=== PATIENT | female | born 1970 ===

== ENCOUNTER 2017-06-04 04:00 | Inpatient (IN) | payer MEDICAID ==
[2017-06-04 04:11] VITALS: BMI 21.4
[2017-06-04 04:51] LABS: BASO # 0.1 K/uL (0.0-0.2); BASO % 1.4 % (0.0-2.0); EOS # 0.1 K/uL (0.0-0.7); EOS % 1.2 % (0.0-4.0); HEMATOCRIT 37.1 % (34.0-47.0); LYMPH # 2.3 K/uL (1.0-4.3); LYMPH % 26.6 % (20.0-40.0); MEAN CORPUSCULAR HEMOGLOBIN 31.3 pg (27.0-31.0); MEAN PLATELET VOLUME 8.1 fl (7.2-11.7); MONO # 0.6 K/uL (0.0-0.8); MONO % 7.6 % (0.0-10.0); NEUT # 5.4 K/uL (1.8-7.0); NEUT % 63.2 % (50.0-75.0); NRBC % 0.1 % (0.0-0.0); RED CELL DISTRIBUTION WIDTH 13.5 % (11.5-14.5); WHITE BLOOD COUNT 8.6 K/uL (4.8-10.8)
[2017-06-04 05:00] LABS: ALB/GLOB RATIO 1.3 (1.0-2.1); ALCOHOL SERUM < 10 mg/dl (0-10); ALKALINE PHOSPHATASE 50 U/L (38-126); ALT/SGPT 26 U/L (9-52); AST/SGOT 20 U/L (14-36); BILIRUBIN,TOTAL 0.4 mg/dl (0.2-1.3); BLOOD UREA NITROGEN 27 mg/dl (7-17); CALCIUM 8.7 mg/dL (8.4-10.2); CARBON DIOXIDE 24 mmol/L (22-30); CHLORIDE 107 mmol/L (98-107); GFR AFRICAN-AMERICAN > 60; GLUCOSE,RANDOM 98 mg/dL (65-105); MAGNESIUM 1.8 MG/DL (1.6-2.3); POTASSIUM 3.4 MMOL/L (3.6-5.0); SODIUM 141 mmol/l (132-148); TOTAL PROTEIN 6.9 G/DL (6.3-8.2)
[2017-06-04 05:04] LABS: PARTIAL THROMBOPLASTIN TIME 30.7 Seconds (25.6-37.1)
[2017-06-04] MEDS ORDERED: DEXTROSE 5% IVPB STA ×2 (05:22→05:32)
[2017-06-04] MEDS ORDERED: WATER IVPB STA ×2 (05:22→05:32)
[2017-06-04] MEDS ORDERED: ACETYLCYSTEINE IVPB STA ×2 (05:22→05:32)
--- NOTE | 2017-06-04 05:33 | ED PDOC ---
HPI: Psych/Substance Abuse Time Seen by Provider: 06/04/17 04:10 Chief Complaint (Nursing): Psychiatric Evaluation Chief Complaint (Provider): Overdose ED Caveat: Uncooperative History Per: Patient History/Exam Limitations: no limitations Onset/Duration Of Symptoms: Mins (just prior to arrival) Current Symptoms Are (Timing): Still Present Additional Complaint(s): 47 y/o female with a past medical history of depression, brought to the ED by EMS, presents to the ED complaining of an overdose, with an onset just prior to arrival. According to EMS, they received a phone call from the patient's concerned nephew, who witnessed the patient take 10 tablets of Aleve and 8 tablets of Ibuprofen with suicidal intent because the patient was experiencing some sort of strain with her boyfriend and seemed depressed. On arrival to ED she is not cooperative, but denies nausea, vomiting, diarrhea,fever, cough, and chest pain. Of note, patient denies of any surgical, social, or family history, but admits to being suicidal. Past Medical History Reviewed: Historical Data, Nursing Documentation, Vital Signs Vital Signs: Last Vital Signs Temp 98.0 F 06/04/17 04:09 Pulse 79 06/04/17 04:09 Resp 16 06/04/17 04:09 BP 158/84 H 06/04/17 04:09 Pulse Ox 100 06/04/17 04:09 - Medical History PMH: Asthma, Back Problems, Depression, Gall Bladder Disease (gallstone), Migraine - Surgical History Surgical History: No Surg Hx - Family History Family History: States: Unknown Family Hx - Living Arrangements Living Arrangements: With Family - Social History Current smoker - smoking cessation education provided: No Ex-Smoker (has not smoked in the last 12 months): No Drugs: Denies - Immunization History Hx Tetanus Toxoid Vaccination: No Hx Influenza Vaccination: No Hx Pneumococcal Vaccination: No - Home Medications Home Medications: Ambulatory Orders Medication Instructions Recorded Famotidine [Pepcid] 20 mg PO BID #30 tab 01/04/17 Metoclopramide [Reglan] 1 tab PO TID PRN #15 tab 01/04/17 Albuterol HFA [Ventolin HFA 90 2 puff IH Q4H PRN #1 bottle 05/21/17 mcg/actuation (8 g)] Methylprednisolone [Medrol Dose 4 mg PO DAILY #21 mg 05/21/17 Pack (21 tabs)] - Allergies Allergies/Adverse Reactions: Allergies Allergy/AdvReac Type Severity Reaction Status Date / Time tramadol Allergy Verified 08/28/16 12:23 Review of Systems ROS Statement: Except As Marked, All Systems Reviewed And Found Negative Constitutional: Negative for: Fever Cardiovascular: Negative for: Chest Pain Respiratory: Negative for: Cough Gastrointestinal: Negative for: Nausea, Vomiting, Diarrhea Psych: Positive for: Depression, Suicidal ideation Physical Exam - Reviewed Nursing Documentation Reviewed: Yes Vital Signs Reviewed: Yes - Physical Exam Appears: Positive for: Non-toxic, No Acute Distress Head Exam: Positive for: ATRAUMATIC, NORMOCEPHALIC Skin: Positive for: Normal Color, Warm Eye Exam: Positive for: Normal appearance, EOMI, PERRL ENT: Positive for: Normal ENT Inspection Neck: Positive for: Normal, Painless ROM, Supple Cardiovascular/Chest: Positive for: Regular Rate, Rhythm. Negative for: Murmur Respiratory: Positive for: Normal Breath Sounds. Negative for: Respiratory Distress Gastrointestinal/Abdominal: Positive for: Normal Exam, Soft. Negative for: Tenderness Back: Positive for: Normal Inspection Extremity: Positive for: Normal ROM. Negative for: Pedal Edema, Deformity Neurologic/Psych: Positive for: Alert, Oriented, Mood/Affect (Affect is flat). Negative for: Motor/Sensory Deficits - Laboratory Results Result Diagrams: 06/04/17 04:41 06/04/17 15:00 - ECG O2 Sat by Pulse Oximetry: 100 (RA) Pulse Ox Interpretation: Normal - Critical Care Total Time (In Min): 60 Medical Decision Making Medical Decision Making: Time: --04:11 Initial Impression: -- 47 y/o female with suicidal ideation and action via overdose Initial Plan: --EKG --Drug Screen, Urine --Acetaminophen Routine --hepatic Function (Liver) --Poison Control Consult --Crisis Evaluation --ED Urine [place] --Urine --INR --Acetylcsteine IVPB --Haldol 5mg IM --Lorazepam 2mg iM --Heplock Insertion --1:1 Obs for Suicide Precaution --Call Poison Control --Accucheck --Restraint: Violent or Harm to self/other --Urinalysis Reassess --04:41 --labs reviewed significant for Acetaminophen level of 23, so provider spoke with patient again to ascertain if acetaminophen had been ingested; the patient now believes that she may have taken 8 tabs of acetaminophen instead of ibuprofen as bottle was not labeled clearly. --Poison tele consult was obtained. Provider spoke with poison control nurse Brian who left decision to the provider regarding acetadote administration. He also recommended repeat 4 hour Tylenol, liver function and INR which has been ordered. Additionally, the loading dose and 4 hour infusion dose of Acetadote has been ordered. --07:00 Patient to be signed out to Dr. Steward pending repeat labs and reevaluation. Scribe Attestation: Documented by Fuentes Hannah acting as a scribe for Rohan Hernandes MD. Provider Attestation: All medical record entries made by the Scribe were at my direction and personally dictated by me. I have reviewed the chart and agree that the record accurately reflects my personal performance of the history, physical exam, medical decision making, and the department course for this patient. I have also personally directed, reviewed, and agree with the discharge instructions and disposition. Disposition - Clinical Impression Clinical Impression: Tylenol overdose, Suicide attempt - Patient ED Disposition Is Patient to be Admitted: Transfer of Care - Disposition Disposition: Transfer of Care Disposition Time: 07:00 (Patient to be signed out to Dr. Steward pending repeat labs and reevaluation.) Condition: GUARDED
--- NOTE | 2017-06-04 07:07 | ED PDOC ---
- Laboratory Results Result Diagrams: 06/04/17 04:41 06/04/17 04:41 - ECG O2 Sat by Pulse Oximetry: 100 (RA) Pulse Ox Interpretation: Normal Medical Decision Making Medical Decision Makin:00 Patient signed over from Rohan Hernandes MD to me pending repeat labs and reevaluation. Scribe Attestation: Documented by Hannah Rahman, acting as a scribe for Frank Steward MD. Provider Scribe Attestation: All medical record entries made by the Scribe were at my direction and personally dictated by me. I have reviewed the chart and agree that the record accurately reflects my personal performance of the history, physical exam, medical decision making, and the department course for this patient. I have also personally directed, reviewed, and agree with the discharge instructions and disposition. Disposition - Clinical Impression Clinical Impression: Tylenol overdose, Suicide attempt - POA Present On Arrival: None - Disposition Disposition: Admitted as In-Patient Disposition Time: 10:39 Forms: [employer] ([employer])
[2017-06-04] MEDS ORDERED: Potassium Chloride 20 mEq ER Tab PO ONE (07:09)
[2017-06-04 07:33] LABS: RBC URINE 1 /hpf (0-3); URINE BACTERIA RARE (<OCC); URINE BILIRUBIN NEGATIVE (NEGATIVE); URINE BLOOD NEGATIVE (NEGATIVE); URINE COLOR STRAW (YELLOW); URINE GLUCOSE (UA) NEG (Normal); URINE KETONE NEGATIVE (NEGATIVE); URINE LEUKOCYTE ESTERASE NEG Leu/uL (Negative); URINE PROTEIN NEGATIVE (NEGATIVE); URINE UROBILINOGEN 0.2-1.0 mg/dL (0.2-1.0); WBC URINE 1 /hpf (0-5)
[2017-06-04] MEDS ORDERED: DEXTROSE 5% IVPB ONE ×4 (10:19→20:07)
[2017-06-04] MEDS ORDERED: ACETYLCYSTEINE IVPB ONE ×4 (10:19→20:07)
[2017-06-04] MEDS ORDERED: WATER IVPB ONE ×4 (10:19→20:07)
[2017-06-04 10:20] LABS: ALB/GLOB RATIO 1.2 (1.0-2.1); ALT/SGPT 23 U/L (9-52); AST/SGOT 19 U/L (14-36)
[2017-06-04 10:24] LABS: BILIRUBIN,TOTAL 0.6 mg/dl (0.2-1.3); TOTAL PROTEIN 6.5 G/DL (6.3-8.2)
[2017-06-04 10:38] LABS: ALKALINE PHOSPHATASE < 20 U/L (38-126)
--- NOTE | 2017-06-04 12:43 | CARD ---
APPROVED REPORT EKG Measurement Heart [id number] <Conclusion> Normal sinus rhythm Normal ECG
[2017-06-04 15:26] LABS: ALB/GLOB RATIO 1.2 (1.0-2.1); ALKALINE PHOSPHATASE 27 U/L (38-126); ALT/SGPT 24 U/L (9-52); AST/SGOT 28 U/L (14-36); BILIRUBIN,TOTAL 0.6 mg/dl (0.2-1.3); BLOOD UREA NITROGEN 12 mg/dl (7-17); CALCIUM 8.1 mg/dL (8.4-10.2); CARBON DIOXIDE 23 mmol/L (22-30); CHLORIDE 111 mmol/L (98-107); GFR AFRICAN-AMERICAN > 60; GLUCOSE,RANDOM 97 mg/dL (65-105); POTASSIUM 3.4 MMOL/L (3.6-5.0); SODIUM 136 mmol/l (132-148); TOTAL PROTEIN 5.7 G/DL (6.3-8.2)
[2017-06-05] MEDS: Sodium Chloride 0.9% 1,000 ML IV SCH ×2 (00:07→09:55)
--- NOTE | 2017-06-05 00:11 | CP.PCM.HP ---
Past Patient History - Infectious Disease Hx of Infectious Diseases: None - Past Social History Smoking Status: Former Smoker - CARDIAC Hx Cardiac Disorders: Yes - PULMONARY Hx Respiratory Disorders: No - NEUROLOGICAL Hx Neurological Disorder: No - HEENT Hx HEENT Problems: No - RENAL Hx Chronic Kidney Disease: No - ENDOCRINE/METABOLIC Hx Endocrine Disorders: No - HEMATOLOGICAL/ONCOLOGICAL Hx Blood Disorders: No - INTEGUMENTARY Hx Dermatological Problems: No - MUSCULOSKELETAL/RHEUMATOLOGICAL Hx Musculoskeletal Disorders: No Hx Falls: No - GASTROINTESTINAL Hx Gall Bladder Disease: Yes (gallstone) - GENITOURINARY/GYNECOLOGICAL Hx Genitourinary Disorders: Yes - PSYCHIATRIC Hx Psychophysiologic Disorder: Yes Hx Substance Use: Yes - SURGICAL HISTORY Hx Surgeries: Yes Other/Comment: L eye surgery at age 3 to open duct and lift lid - ANESTHESIA Hx Anesthesia: Yes (pt cannot remember) Hx Anesthesia Reactions: No Meds Allergies/Adverse Reactions: Allergies Allergy/AdvReac Type Severity Reaction Status Date / Time tramadol Allergy Verified 08/28/16 12:23 Results - Vital Signs Recent Vital Signs: Last Vital Signs Temp 97.6 F 06/04/17 19:33 Pulse 64 06/04/17 19:33 Resp 20 06/04/17 19:33 BP 106/70 06/04/17 19:33 Pulse Ox 97 06/04/17 19:33 - Labs Result Diagrams: 06/04/17 04:41 06/04/17 15:00 Labs: Laboratory Results - last 24 hr 06/04/17 06/04/17 06/04/17 04:41 04:41 04:41 WBC 8.6 D RBC 3.91 Hgb 12.2 Hct 37.1 MCV 95.0 MCH 31.3 H MCHC 33.0 RDW 13.5 Plt Count 299 MPV 8.1 Neut % (Auto) 63.2 Lymph % (Auto) 26.6 [place] % (Auto) 7.6 Eos % (Auto) 1.2 Baso % (Auto) 1.4 Neut # 5.4 Lymph # 2.3 [place] # 0.6 Eos # 0.1 Baso # 0.1 PT INR APTT Sodium 141 Potassium 3.4 L Chloride 107 Carbon Dioxide 24 Anion Gap 13 BUN 27 H Creatinine 0.7 Est GFR ( Amer) > 60 Est GFR (Non-Af Amer) > 60 Random Glucose 98 Calcium 8.7 Magnesium 1.8 Total Bilirubin 0.4 Direct Bilirubin AST 20 ALT 26 Alkaline Phosphatase 50 Ammonia Total Protein 6.9 Albumin 3.8 Globulin 3.0 Albumin/Globulin Ratio 1.3 Urine Color Urine Clarity Urine pH Ur Specific [place] Urine Protein Urine Glucose (UA) Urine Ketones Urine Blood Urine Nitrate Urine Bilirubin Urine Urobilinogen Ur Leukocyte Esterase Urine RBC (Auto) Urine Microscopic WBC Ur Squamous Epith Cells Urine Bacteria Salicylates < 1.0 Urine Opiates Screen Urine Methadone Screen Acetaminophen 23.0 Ur Barbiturates Screen Ur Phencyclidine Scrn Ur Amphetamines Screen U Benzodiazepines Scrn U Oth Cocaine Metabols U Cannabinoids Screen Alcohol, Quantitative < 10 06/04/17 06/04/17 06/04/17 04:41 06:24 06:24 WBC RBC Hgb Hct MCV MCH MCHC RDW Plt Count MPV Neut % (Auto) Lymph % (Auto) [place] % (Auto) Eos % (Auto) Baso % (Auto) Neut # Lymph # [place] # Eos # Baso # PT 11.4 INR 1.0 APTT 30.7 Sodium Potassium Chloride Carbon Dioxide Anion Gap BUN Creatinine Est GFR ( Amer) Est GFR (Non-Af Amer) Random Glucose Calcium Magnesium Total Bilirubin Direct Bilirubin AST ALT Alkaline Phosphatase Ammonia Total Protein Albumin Globulin Albumin/Globulin Ratio Urine Color Straw Urine Clarity Clear Urine pH 5.0 Ur Specific [place] 1.010 Urine Protein Negative Urine Glucose (UA) Neg Urine Ketones Negative Urine Blood Negative Urine Nitrate Negative Urine Bilirubin Negative Urine Urobilinogen 0.2-1.0 Ur Leukocyte Esterase Neg Urine RBC (Auto) 1 Urine Microscopic WBC 1 Ur Squamous Epith Cells < 1 Urine Bacteria Rare Salicylates Urine Opiates Screen Negative Urine Methadone Screen Negative Acetaminophen Ur Barbiturates Screen Negative Ur Phencyclidine Scrn Negative Ur Amphetamines Screen Negative U Benzodiazepines Scrn Negative U Oth Cocaine Metabols Negative U Cannabinoids Screen Negative Alcohol, Quantitative 06/04/17 06/04/17 06/04/17 09:17 09:17 09:17 WBC RBC Hgb Hct MCV MCH MCHC RDW Plt Count MPV Neut % (Auto) Lymph % (Auto) [place] % (Auto) Eos % (Auto) Baso % (Auto) Neut # Lymph # [place] # Eos # Baso # PT 12.3 INR 1.1 APTT Sodium Potassium Chloride Carbon Dioxide Anion Gap BUN Creatinine Est GFR ( Amer) Est GFR (Non-Af Amer) Random Glucose Calcium Magnesium Total Bilirubin 0.6 Direct Bilirubin 0.4 AST 19 ALT 23 Alkaline Phosphatase < 20 L D Ammonia Total Protein 6.5 Albumin 3.6 Globulin 2.9 Albumin/Globulin Ratio 1.2 Urine Color Urine Clarity Urine pH Ur Specific [place] Urine Protein Urine Glucose (UA) Urine Ketones Urine Blood Urine Nitrate Urine Bilirubin Urine Urobilinogen Ur Leukocyte Esterase Urine RBC (Auto) Urine Microscopic WBC Ur Squamous Epith Cells Urine Bacteria Salicylates Urine Opiates Screen Urine Methadone Screen Acetaminophen 42.0 H Ur Barbiturates Screen Ur Phencyclidine Scrn Ur Amphetamines Screen U Benzodiazepines Scrn U Oth Cocaine Metabols U Cannabinoids Screen Alcohol, Quantitative 06/04/17 06/04/17 06/04/17 14:30 15:00 15:00 WBC RBC Hgb Hct MCV MCH MCHC RDW Plt Count MPV Neut % (Auto) Lymph % (Auto) [place] % (Auto) Eos % (Auto) Baso % (Auto) Neut # Lymph # [place] # Eos # Baso # PT 13.1 INR 1.2 APTT Sodium 136 Potassium 3.4 L Chloride 111 H Carbon Dioxide 23 Anion Gap 5 L BUN 12 Creatinine 0.5 L Est GFR ( Amer) > 60 Est GFR (Non-Af Amer) > 60 Random Glucose 97 Calcium 8.1 L Magnesium Total Bilirubin 0.6 Direct Bilirubin 0.2 AST 28 ALT 24 Alkaline Phosphatase 27 L D Ammonia < 9 L Total Protein 5.7 L Albumin 3.1 L Globulin 2.6 Albumin/Globulin Ratio 1.2 Urine Color Urine Clarity Urine pH Ur Specific [place] Urine Protein Urine Glucose (UA) Urine Ketones Urine Blood Urine Nitrate Urine Bilirubin Urine Urobilinogen Ur Leukocyte Esterase Urine RBC (Auto) Urine Microscopic WBC Ur Squamous Epith Cells Urine Bacteria Salicylates Urine Opiates Screen Urine Methadone Screen Acetaminophen Ur Barbiturates Screen Ur Phencyclidine Scrn Ur Amphetamines Screen U Benzodiazepines Scrn U Oth Cocaine Metabols U Cannabinoids Screen Alcohol, Quantitative 06/04/17 15:00 WBC RBC Hgb Hct MCV MCH MCHC RDW Plt Count MPV Neut % (Auto) Lymph % (Auto) [place] % (Auto) Eos % (Auto) Baso % (Auto) Neut # Lymph # [place] # Eos # Baso # PT INR APTT Sodium Potassium Chloride Carbon Dioxide Anion Gap BUN Creatinine Est GFR ( Amer) Est GFR (Non-Af Amer) Random Glucose Calcium Magnesium Total Bilirubin Direct Bilirubin AST ALT Alkaline Phosphatase Ammonia Total Protein Albumin Globulin Albumin/Globulin Ratio Urine Color Urine Clarity Urine pH Ur Specific [place] Urine Protein Urine Glucose (UA) Urine Ketones Urine Blood Urine Nitrate Urine Bilirubin Urine Urobilinogen Ur Leukocyte Esterase Urine RBC (Auto) Urine Microscopic WBC Ur Squamous Epith Cells Urine Bacteria Salicylates Urine Opiates Screen Urine Methadone Screen Acetaminophen 11.0 Ur Barbiturates Screen Ur Phencyclidine Scrn Ur Amphetamines Screen U Benzodiazepines Scrn U Oth Cocaine Metabols U Cannabinoids Screen Alcohol, Quantitative
[2017-06-05] MEDS ORDERED: Potassium Chloride 20 mEq/15 ml LIQ UD PO STA (10:00)
--- NOTE | 2017-06-05 13:22 | CP.PCM.CON ---
History of Present Illness - History of Present Illness History of Present Illness: This is a 47 yr old female with h/o admission,brought by EMS as they were called by nephew who has witnessed pt taking overdose on alleve and other pills in a suicidal attempt following an argument with the boyfriend and pt was medically admitted due to high tylenol level. Past Patient History - Infectious Disease Hx of Infectious Diseases: None - Past Social History Drugs: Denies - CARDIAC Hx Cardiac Disorders: Yes - PULMONARY Hx Asthma: Yes - NEUROLOGICAL Hx Migraine: Yes - HEENT Hx HEENT Problems: No - RENAL Hx Chronic Kidney Disease: No - ENDOCRINE/METABOLIC Hx Endocrine Disorders: No - HEMATOLOGICAL/ONCOLOGICAL Hx Blood Disorders: No - INTEGUMENTARY Hx Dermatological Problems: No - MUSCULOSKELETAL/RHEUMATOLOGICAL Hx Musculoskeletal Disorders: No Hx Falls: No - GASTROINTESTINAL Hx Gall Bladder Disease: Yes (gallstone) - GENITOURINARY/GYNECOLOGICAL Hx Genitourinary Disorders: Yes - PSYCHIATRIC Hx Depression: Yes - SURGICAL HISTORY Hx Surgeries: Yes Other/Comment: L eye surgery at age 3 to open duct and lift lid - ANESTHESIA Hx Anesthesia: Yes (pt cannot remember) Hx Anesthesia Reactions: No Meds Allergies/Adverse Reactions: Allergies Allergy/AdvReac Type Severity Reaction Status Date / Time tramadol Allergy Verified 08/28/16 12:23 - Medications Medications: Current Medications Sodium Chloride (Sodium Chloride 0.9%) 1,000 mls @ 100 mls/hr IV .Q10H SARAH Stop: 06/05/17 14:09 Last Admin: 06/05/17 09:55 Dose: 100 mls/hr Physical Exam - Psychiatric Exam Psychiatric exam: Depressed, Flat Affect, Suicidal Ideation Additional comments: Pt is alert ,oriented x3 with intact cognition.pt has depressed mood and still a risk gino self .pt has poor insight and still not sure about voluntary psych admission.no psychosis. Results - Vital Signs Recent Vital Signs: Last Vital Signs Temp 98.3 F 06/05/17 12:00 Pulse 66 06/05/17 12:00 Resp 18 06/05/17 12:00 BP 103/66 06/05/17 12:00 Pulse Ox 98 06/05/17 12:00 - Labs Result Diagrams: 06/06/17 04:30 06/06/17 04:30 Labs: Laboratory Results - last 24 hr 06/04/17 06/04/17 06/04/17 14:30 15:00 15:00 PT 13.1 INR 1.2 Sodium 136 Potassium 3.4 L Chloride 111 H Carbon Dioxide 23 Anion Gap 5 L BUN 12 Creatinine 0.5 L Est GFR ( Amer) > 60 Est GFR (Non-Af Amer) > 60 Random Glucose 97 Calcium 8.1 L Total Bilirubin 0.6 Direct Bilirubin 0.2 AST 28 ALT 24 Alkaline Phosphatase 27 L D Ammonia < 9 L Total Protein 5.7 L Albumin 3.1 L Globulin 2.6 Albumin/Globulin Ratio 1.2 Acetaminophen 06/04/17 15:00 PT INR Sodium Potassium Chloride Carbon Dioxide Anion Gap BUN Creatinine Est GFR ( Amer) Est GFR (Non-Af Amer) Random Glucose Calcium Total Bilirubin Direct Bilirubin AST ALT Alkaline Phosphatase Ammonia Total Protein Albumin Globulin Albumin/Globulin Ratio Acetaminophen 11.0 Assessment & Plan - Assessment and Plan (Free Text) Assessment: a/p : major depression plan : will continue 1:1 observation I have offered pt voluntary inpt osych admission to 3Np or 3Ns depending on bed availability and pt is not sure about it and want to discuss with the nephew will admit pt voluntarily and if she refuses than pt be referred for screening by [facility] for committment.
--- NOTE | 2017-06-05 23:51 | CP.PCM.PN ---
Subjective - Date & Time of Evaluation Date of Evaluation: 06/05/17 Time of Evaluation: 09:50 Objective - Vital Signs/Intake and Output Vital Signs (last 24 hours): Temp Pulse Resp BP Pulse Ox 98.5 F 77 20 93/56 L 100 06/05/17 19:52 06/05/17 20:37 06/05/17 19:52 06/05/17 19:52 06/05/17 19:52 - Labs Labs: 06/04/17 04:41 06/04/17 15:00 PT 13.1 Seconds (9.8-13.1) 06/04/17 15:00 INR 1.2 (0.9-1.2) 06/04/17 15:00 APTT 30.7 Seconds (25.6-37.1) 06/04/17 04:41
[2017-06-06 06:05] LABS: ALB/GLOB RATIO 1.3 (1.0-2.1); ALKALINE PHOSPHATASE 36 U/L (38-126); ALT/SGPT 22 U/L (9-52); AST/SGOT 28 U/L (14-36); BILIRUBIN,TOTAL 0.1 mg/dl (0.2-1.3); BLOOD UREA NITROGEN 12 mg/dl (7-17); CALCIUM 8.8 mg/dL (8.4-10.2); CARBON DIOXIDE 27 mmol/L (22-30); CHLORIDE 109 mmol/L (98-107); GFR AFRICAN-AMERICAN > 60; GLUCOSE,RANDOM 97 mg/dL (65-105); POTASSIUM 4.1 MMOL/L (3.6-5.0); SODIUM 140 mmol/l (132-148); TOTAL PROTEIN 6.3 G/DL (6.3-8.2)
[2017-06-06 06:11] LABS: BASO % 0.7 % (0.0-2.0); EOS # 0.1 K/uL (0.0-0.7); EOS % 0.9 % (0.0-4.0); HEMATOCRIT 35.6 % (34.0-47.0); LYMPH # 1.8 K/uL (1.0-4.3); LYMPH % 27.3 % (20.0-40.0); MEAN CELL VOLUME 94.8 fl (81.0-99.0); MEAN CORPUSCULAR HEMOGLOBIN 31.8 pg (27.0-31.0); MEAN CORPUSCULAR HGB CONC 33.6 g/dL (33.0-37.0); MEAN PLATELET VOLUME 8.6 fl (7.2-11.7); MONO # 0.5 K/uL (0.0-0.8); MONO % 7.4 % (0.0-10.0); NEUT # 4.3 K/uL (1.8-7.0); NEUT % 63.7 % (50.0-75.0); NRBC % 0.1 % (0.0-0.0); RED CELL DISTRIBUTION WIDTH 13.2 % (11.5-14.5); WHITE BLOOD COUNT 6.7 K/uL (4.8-10.8)
--- NOTE | 2017-06-06 15:31 | CP.PCM.CON ---
History of Present Illness - History of Present Illness History of Present Illness: This is a 47 yr old female with h/o admission,brought by EMS as they were called by nephew who has witnessed pt taking overdose on alleve and other pills in a suicidal attempt following an argument with the boyfriend and pt was medically admitted due to high tylenol level. pt currently medicaly cleared, reported previous hx of bipolar placed by psychiatrist on lithtium butt non compliant with medications or follow up reported multiple stressors at work and arguments with boy friend and being currently evicted from her residence with multiple financial stressors Past Patient History - Infectious Disease Hx of Infectious Diseases: None - Past Social History Drugs: Denies - CARDIAC Hx Cardiac Disorders: Yes - PULMONARY Hx Asthma: Yes - NEUROLOGICAL Hx Migraine: Yes - HEENT Hx HEENT Problems: No - RENAL Hx Chronic Kidney Disease: No - ENDOCRINE/METABOLIC Hx Endocrine Disorders: No - HEMATOLOGICAL/ONCOLOGICAL Hx Blood Disorders: No - INTEGUMENTARY Hx Dermatological Problems: No - MUSCULOSKELETAL/RHEUMATOLOGICAL Hx Musculoskeletal Disorders: No Hx Falls: No - GASTROINTESTINAL Hx Gall Bladder Disease: Yes (gallstone) - GENITOURINARY/GYNECOLOGICAL Hx Genitourinary Disorders: Yes - PSYCHIATRIC Hx Depression: Yes - SURGICAL HISTORY Hx Surgeries: Yes Other/Comment: L eye surgery at age 3 to open duct and lift lid - ANESTHESIA Hx Anesthesia: Yes (pt cannot remember) Hx Anesthesia Reactions: No Meds Allergies/Adverse Reactions: Allergies Allergy/AdvReac Type Severity Reaction Status Date / Time tramadol Allergy Verified 08/28/16 12:23 Physical Exam - Psychiatric Exam Additional comments: pt depressed, guarded, evasive .poor eye contact depressed mood and affect, minimizing her symptoms, poor insight opoor judgement and poor impulse control denied psychotic symptoms, when asked about suicidal ideations guarded and evasisve denied homicidal ideations alert awake ox3 Results - Vital Signs Recent Vital Signs: Last Vital Signs Temp 98.5 F 06/06/17 11:47 Pulse 75 06/06/17 11:47 Resp 18 06/06/17 11:47 BP 104/69 06/06/17 11:47 Pulse Ox 98 06/06/17 11:47 - Labs Result Diagrams: 06/06/17 04:30 06/06/17 04:30 Labs: Laboratory Results - last 24 hr 06/06/17 06/06/17 04:30 04:30 WBC 6.7 RBC 3.75 L Hgb 11.9 L Hct 35.6 MCV 94.8 MCH 31.8 H MCHC 33.6 RDW 13.2 Plt Count 273 MPV 8.6 Neut % (Auto) 63.7 Lymph % (Auto) 27.3 [place] % (Auto) 7.4 Eos % (Auto) 0.9 Baso % (Auto) 0.7 Neut # 4.3 Lymph # 1.8 [place] # 0.5 Eos # 0.1 Baso # 0.0 Sodium 140 Potassium 4.1 Chloride 109 H Carbon Dioxide 27 Anion Gap 8 L BUN 12 Creatinine 0.6 L Est GFR ( Amer) > 60 Est GFR (Non-Af Amer) > 60 Random Glucose 97 Calcium 8.8 Total Bilirubin 0.1 L AST 28 ALT 22 Alkaline Phosphatase 36 L D Total Protein 6.3 Albumin 3.6 Globulin 2.7 Albumin/Globulin Ratio 1.3 Assessment & Plan - Assessment and Plan (Free Text) Assessment: bipolar disorder MRE DEPRESSED SEVERE PT IS HIGHRISK FOR SUICIDE WITH SERIOUS SUICIDE ATTEMPT REFUSING VOLUNTARY ADMISSION PT TO BE SCREENED FOR INVOLUNTARY ADMISSION FOR HIGH SUICIDE RISK CONTINUE 1; 1 OBSERVATION
--- NOTE | 2017-06-06 20:51 | CP.PCM.PN ---
Subjective - Date & Time of Evaluation Date of Evaluation: 06/06/17 Time of Evaluation: 17:30 Objective - Vital Signs/Intake and Output Vital Signs (last 24 hours): Temp Pulse Resp BP Pulse Ox 98 F 18 L 20 112/76 98 06/06/17 19:29 06/06/17 19:29 06/06/17 19:29 06/06/17 19:29 06/06/17 19:29 - Labs Labs: 06/06/17 04:30 06/06/17 04:30 PT 13.1 Seconds (9.8-13.1) 06/04/17 15:00 INR 1.2 (0.9-1.2) 06/04/17 15:00 APTT 30.7 Seconds (25.6-37.1) 06/04/17 04:41
--- NOTE | 2017-06-07 15:37 | RAD ---
HISTORY: clearance COMPARISON: No prior. TECHNIQUE: Chest PA and lateral FINDINGS: LUNGS: No active pulmonary disease. PLEURA: No significant pleural effusion identified. No pneumothorax apparent. CARDIOVASCULAR: Normal. OSSEOUS STRUCTURES: Limited scoliotic deformity of the thoracolumbar spine is appreciated toward the right. VISUALIZED UPPER ABDOMEN: Normal. OTHER FINDINGS: None. IMPRESSION: No acute cardiopulmonary disease appreciated. Incidental scoliotic deformity, limited, thoracolumbar segment.
[2017-06-07] MEDS: Simethicone 80 mg Chewtab PO SCH ×2 (18:34→23:20)
--- NOTE | 2017-06-07 23:47 | CP.PCM.PN ---
Subjective - Date & Time of Evaluation Date of Evaluation: 06/07/17 Time of Evaluation: 13:10 Objective - Vital Signs/Intake and Output Vital Signs (last 24 hours): Temp Pulse Resp BP Pulse Ox 97.7 F 72 20 110/75 99 06/07/17 19:38 06/07/17 20:39 06/07/17 19:38 06/07/17 19:38 06/07/17 19:38 Intake and Output: 06/07/17 06/08/17 18:59 06:59 Intake Total 950 Balance 950 - Medications Medications: Current Medications Simethicone (Mylicon Chew Tab) 80 mg PO [facility] Last Admin: 06/07/17 18:34 Dose: 80 mg - Labs Labs: 06/06/17 04:30 06/06/17 04:30 PT 13.1 Seconds (9.8-13.1) 06/04/17 15:00 INR 1.2 (0.9-1.2) 06/04/17 15:00 APTT 30.7 Seconds (25.6-37.1) 06/04/17 04:41
[2017-06-08 08:18] VITALS: RESP 18
[2017-06-08 12:01] VITALS: BP 103/69; PULSE 65; TEMP 97.6; O2SAT 99
[2017-06-08] MEDS: Simethicone 80 mg Chewtab PO SCH ×2 (14:40→14:41)
--- NOTE | 2017-06-09 00:38 | CP.PCM.DIS ---
Provider - Provider Date of Admission: 06/04/17 10:37 Attending physician: Consuelo Geronimo MD Time Spent in preparation of Discharge (in minutes): 30 Hospital Course - Lab Results Lab Results: Most Recent Lab Values WBC 6.7 K/uL (4.8-10.8) 06/06/17 04:30 RBC 3.75 Mil/uL (3.80-5.20) L 06/06/17 04:30 Hgb 11.9 g/dL (12.0-16.0) L 06/06/17 04:30 Hct 35.6 % (34.0-47.0) 06/06/17 04:30 MCV 94.8 fl (81.0-99.0) 06/06/17 04:30 MCH 31.8 pg (27.0-31.0) H 06/06/17 04:30 MCHC 33.6 g/dL (33.0-37.0) 06/06/17 04:30 RDW 13.2 % (11.5-14.5) 06/06/17 04:30 Plt Count 273 K/uL (130-400) 06/06/17 04:30 MPV 8.6 fl (7.2-11.7) 06/06/17 04:30 Neut % (Auto) 63.7 % (50.0-75.0) 06/06/17 04:30 Lymph % (Auto) 27.3 % (20.0-40.0) 06/06/17 04:30 Hartley % (Auto) 7.4 % (0.0-10.0) 06/06/17 04:30 Eos % (Auto) 0.9 % (0.0-4.0) 06/06/17 04:30 Baso % (Auto) 0.7 % (0.0-2.0) 06/06/17 04:30 Neut # 4.3 K/uL (1.8-7.0) 06/06/17 04:30 Lymph # 1.8 K/uL (1.0-4.3) 06/06/17 04:30 Hartley # 0.5 K/uL (0.0-0.8) 06/06/17 04:30 Eos # 0.1 K/uL (0.0-0.7) 06/06/17 04:30 Baso # 0.0 K/uL (0.0-0.2) 06/06/17 04:30 PT 13.1 Seconds (9.8-13.1) 06/04/17 15:00 INR 1.2 (0.9-1.2) 06/04/17 15:00 APTT 30.7 Seconds (25.6-37.1) 06/04/17 04:41 Sodium 140 mmol/l (132-148) 06/06/17 04:30 Potassium 4.1 MMOL/L (3.6-5.0) 06/06/17 04:30 Chloride 109 mmol/L (98-107) H 06/06/17 04:30 Carbon Dioxide 27 mmol/L (22-30) 06/06/17 04:30 Anion Gap 8 (10-20) L 06/06/17 04:30 BUN 12 mg/dl (7-17) 06/06/17 04:30 Creatinine 0.6 mg/dl (0.7-1.2) L 06/06/17 04:30 Est GFR ( Amer) > 60 06/06/17 04:30 Est GFR (Non-Af Amer) > 60 06/06/17 04:30 Random Glucose 97 mg/dL (65-105) 06/06/17 04:30 Calcium 8.8 mg/dL (8.4-10.2) 06/06/17 04:30 Magnesium 1.8 MG/DL (1.6-2.3) 06/04/17 04:41 Total Bilirubin 0.1 mg/dl (0.2-1.3) L 06/06/17 04:30 Direct Bilirubin 0.2 mg/ml (0.0-0.4) 06/04/17 15:00 AST 28 U/L (14-36) 06/06/17 04:30 ALT 22 U/L (9-52) 06/06/17 04:30 Alkaline Phosphatase 36 U/L (38-126) L D 06/06/17 04:30 Ammonia < 9 umo/L (11-51) L 06/04/17 14:30 Total Protein 6.3 G/DL (6.3-8.2) 06/06/17 04:30 Albumin 3.6 g/dL (3.5-5.0) 06/06/17 04:30 Globulin 2.7 gm/dL (2.2-3.9) 06/06/17 04:30 Albumin/Globulin Ratio 1.3 (1.0-2.1) 06/06/17 04:30 Urine Color Straw (YELLOW) 06/04/17 06:24 Urine Clarity Clear (Clear) 06/04/17 06:24 Urine pH 5.0 (5.0-8.0) 06/04/17 06:24 Ur Specific Clayton 1.010 (1.003-1.030) 06/04/17 06:24 Urine Protein Negative mg/dL (NEGATIVE) 06/04/17 06:24 Urine Glucose (UA) Neg mg/dL (Normal) 06/04/17 06:24 Urine Ketones Negative mg/dL (NEGATIVE) 06/04/17 06:24 Urine Blood Negative (NEGATIVE) 06/04/17 06:24 Urine Nitrate Negative (NEGATIVE) 06/04/17 06:24 Urine Bilirubin Negative (NEGATIVE) 06/04/17 06:24 Urine Urobilinogen 0.2-1.0 mg/dL (0.2-1.0) 06/04/17 06:24 Ur Leukocyte Esterase Neg Gee/uL (Negative) 06/04/17 06:24 Urine RBC (Auto) 1 /hpf (0-3) 06/04/17 06:24 Urine Microscopic WBC 1 /hpf (0-5) 06/04/17 06:24 Ur Squamous Epith Cells < 1 /hpf (0-5) 06/04/17 06:24 Urine Bacteria Rare (<OCC) 06/04/17 06:24 Salicylates < 1.0 mg/dl 06/04/17 04:41 Urine Opiates Screen Negative (NEGATIVE) 06/04/17 06:24 Urine Methadone Screen Negative (NEGATIVE) 06/04/17 06:24 Acetaminophen 11.0 ug/ml (10.0-30.0) 06/04/17 15:00 Ur Barbiturates Screen Negative (NEGATIVE) 06/04/17 06:24 Ur Phencyclidine Scrn Negative (NEGATIVE) 06/04/17 06:24 Ur Amphetamines Screen Negative (NEGATIVE) 06/04/17 06:24 U Benzodiazepines Scrn Negative (NEGATIVE) 06/04/17 06:24 U Oth Cocaine Metabols Negative (NEGATIVE) 06/04/17 06:24 U Cannabinoids Screen Negative (NEGATIVE) 06/04/17 06:24 Alcohol, Quantitative < 10 mg/dl (0-10) 06/04/17 04:41 Discharge Exam - Head Exam Head Exam: ATRAUMATIC, NORMOCEPHALIC Discharge Plan - Follow Up Plan Condition: GUARDED Disposition: HOME/ ROUTINE Instructions: Suicide Prevention for Adults (DC)
== END 2017-06-08 16:11 | DRG 450 ==
LOC: H.ER 04:00 → H.ERHOLD 10:37 → H.TEL 13:48
PROVIDERS: ADMIT Internal Medicine; ATTEND Internal Medicine
DX: T39.1X2A Poisoning by 4-Aminophenol derivatives, intentional self-harm, initial encounter (principal); F31.4 Bipolar disorder, current episode depressed, severe, without psychotic features; G43.909 Migraine, unspecified, not intractable, without status migrainosus; J45.909 Unspecified asthma, uncomplicated; K80.20 Calculus of gallbladder without cholecystitis without obstruction; Z91.14 Patient's other noncompliance with medication regimen; Z87.891 Personal history of nicotine dependence

== ENCOUNTER 2017-08-04 17:21 | Emergency (ER) | payer MEDICAID ==
[2017-08-04 17:21] VITALS: BMI 19.9
[2017-08-04 17:29] VITALS: BP 145/74; PULSE 108; RESP 18
--- NOTE | 2017-08-04 17:39 | ED PDOC ---
HPI: Psych/Substance Abuse Time Seen by Provider: 08/04/17 17:30 Chief Complaint (Nursing): Psychiatric Evaluation Chief Complaint (Provider): Psych evaluation History Per: Patient History/Exam Limitations: no limitations Onset/Duration Of Symptoms: Days (1) Additional Complaint(s): Patient is a 47 y/o female with no significant past medical history brought to the emergency department by EMS for a psych evaluation. Per patient, she feels sad today. Reports that she was at her doctors office where she was trying to get help for conceiving when she became upset and had to be escorted out of the office in handcuffs by police. Notes that she had a miscarriage in 2014. She denies being in a relationship and expressed that she wants to be . Denies suicidal ideation, homicidal ideation, hallucination, depression, trauma , fever, headache, dyspnea, vomiting, substance abuse, suicidal plan, or other complaints. PCP: Dr. Jeremy Mercahnt Past Medical History Reviewed: Historical Data, Nursing Documentation, Vital Signs Vital Signs: Last Vital Signs Temp Pulse 108 H 08/04/17 17:25 Resp 18 08/04/17 17:25 BP 145/74 08/04/17 17:25 Pulse Ox - Medical History PMH: Asthma, Back Problems, Depression, Gall Bladder Disease (gallstone), Migraine Denies: Chronic Kidney Disease - Family History Family History: States: Unknown Family Hx - Immunization History Hx Tetanus Toxoid Vaccination: No Hx Influenza Vaccination: No Hx Pneumococcal Vaccination: No - Home Medications Home Medications: Ambulatory Orders Medication Instructions Recorded Famotidine [Pepcid] 20 mg PO BID #30 tab 01/04/17 Albuterol HFA [Ventolin HFA 90 2 puff IH Q4H PRN #1 bottle 05/21/17 mcg/actuation (8 g)] Acetaminophen [Tylenol 325mg tab] 650 mg PO Q6 PRN #30 tab 06/09/17 Simethicone [Mylicon Chew Tab] 80 mg PO Q6 #30 ctb 06/09/17 Benzonatate [Tessalon Perles] 100 mg PO BID PRN #15 sgl 07/13/17 Pseudoephedrine [Sudafed] 60 mg PO Q6 PRN #12 tab 07/13/17 - Allergies Allergies/Adverse Reactions: Allergies Allergy/AdvReac Type Severity Reaction Status Date / Time tramadol Allergy RASH Verified 08/04/17 17:25 Review of Systems ROS Statement: Except As Marked, All Systems Reviewed And Found Negative Constitutional: Negative for: Fever Respiratory: Negative for: Shortness of Breath Gastrointestinal: Negative for: Vomiting Musculoskeletal: Negative for: Other (traumatic pain) Neurological: Negative for: Headache Psych: Negative for: Suicidal ideation (or homicidal ideation), Other ( hallucinations) Physical Exam - Reviewed Nursing Documentation Reviewed: Yes Vital Signs Reviewed: Yes - Physical Exam Comments: GENERAL APPEARANCE: Patient is awake, alert, oriented x 3, in no acute distress. SKIN: Warm, dry; (-) cyanosis. HEAD: (-) scalp swelling, (-) scalp tenderness. EYES: (-) conjunctival pallor, (-) scleral icterus, (-) nystagmus. ENMT: Mucous membranes moist. Airway patent: (-) stridor. NECK: (-) tenderness, (-) stiffness, (-) lymphadenopathy. CHEST AND RESPIRATORY: (-) rales, (-) rhonchi, (-) wheezes; breath sounds equal. ABDOMEN: Soft, (-) distention, (-) tenderness, (-) guarding. NEURO AND PSYCH: Mental status as above. Memory: Intact. 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 Strength and DTRs symmetric. Medical Decision Making Medical Decision Making: Time: 17:31 Initial impression: Psych evaluation Initial plan: EKG Alcohol serum level CMP Urine Drug Screening ED Urine CBC CXR Urinalysis Reevaluation Patient refused EKG, CXR, and labs. 18:00 Patient was seen and evaluated by PES. She is cleared for discharge and is instructed to follow up with outpatient psychiatric service. Advised to follow up with referral provided by [facility] without fail. Return to the emergency room at any time for any new or worsening symptoms. Patient states she fully agrees with and understands discharge instructions. States that she agrees with the plan and disposition. Verbalized and repeated discharge instructions and plan. I have given the patient opportunity to ask any additional questions. Clinical impression: feeling depressed, h/o bipolar disorder ~ Scribe Attestation: Documented by Bhavya Harp, acting as a scribe for DAYNE Brown. Provider Scribe Attestation: All medical record entries made by the Scribe were at my direction and personally dictated by me. I have reviewed the chart and agree that the record accurately reflects my personal performance of the history, physical exam, medical decision making, and the department course for this patient. I have also personally directed, reviewed, and agree with the discharge instructions and disposition. Disposition - Clinical Impression Clinical Impression: Bipolar disorder, Depressed mood - Patient ED Disposition Is Patient to be Admitted: No Counseled Patient/Family Regarding: Diagnosis, Need For Followup - Disposition Disposition: Routine/Home Disposition Time: 18:00 Condition: STABLE Additional Instructions: Thank you for letting us take care of you today. You were treated for bipolar disorder. The emergency medical care you received today was directed at your acute symptoms. Return to the Emergency Department if your symptoms worsen, do not improve, or if you have any other problems. Please one of the physicians/clinics you have been referred to that are listed on the Patient Visit Information form that is included in your discharge packet. Bring any paperwork you were given at discharge with you along with any medications you are taking to your follow up visit. Our treatment cannot replace ongoing medical care by a primary care provider (PCP) outside of the emergency department. Thank you for allowing the [employer] team to be part of your care today. Instructions: Bipolar Disorder (ED) Forms: [employer] (Brazilian) Print Language: KYRGYZ - PA / INVENTORY CONTROL/SHIPPING RECEIVING / Resident Statement MD/DO has reviewed & agrees with the documentation as recorded.
== END 2017-08-04 18:19 | disposition home or self-care (01) ==
LOC: H.ER 17:21
DX: F31.9 Bipolar disorder, unspecified (principal); J45.909 Unspecified asthma, uncomplicated

== ENCOUNTER 2017-11-28 02:07 | Emergency (ER) | payer MEDICAID ==
[2017-11-28 02:07] VITALS: BMI 19.9
[2017-11-28 02:14] VITALS: BP 110/66; PULSE 74; RESP 14; TEMP 98; O2SAT 97
--- NOTE | 2017-11-28 02:31 | ED PDOC ---
HPI: Skin/Bite Injury Time Seen by Provider: 11/28/17 02:09 Chief Complaint (Nursing): Abnormal Skin Integrity Chief Complaint (Provider): Rash History Per: Patient History/Exam Limitations: no limitations Onset/Duration Of Symptoms: Other ("weeks") Current Symptoms Are (Timing): Still Present Additional Complaint(s): 47 y/o female with no significant pmhx, who presents to the ED complaining of itchy rash to torso ongoing for weeks. Patient states she is currently staying with her mother, but was renting a living room with her prior. She denies fever, URI symptoms, difficulty breathing, as well as new soaps, lotions, meds, or foods. She states the rash is itchy all day. Patient also states she hasnt been outside, to a park, backyard, or any area where she could be exposed to an insect or tick bite. PMD: None provided Past Medical History Reviewed: Historical Data, Nursing Documentation, Vital Signs Vital Signs: Last Vital Signs Temp 98 F 11/28/17 02:10 Pulse 74 11/28/17 02:10 Resp 14 11/28/17 02:10 BP 110/66 11/28/17 02:10 Pulse Ox 97 11/28/17 03:07 - Medical History PMH: Asthma, Back Problems, Depression, Gall Bladder Disease (gallstone), Migraine Denies: Diabetes, Hepatitis, HIV, HTN, Chronic Kidney Disease, Seizures, Sexually Transmitted Disease - Surgical History Surgical History: No Surg Hx - Family History Family History: States: Unknown Family Hx - Immunization History Hx Tetanus Toxoid Vaccination: No Hx Influenza Vaccination: No Hx Pneumococcal Vaccination: No - Home Medications Home Medications: Ambulatory Orders Medication Instructions Recorded Albuterol HFA [Ventolin HFA 90 2 puff IH Q4H PRN #1 bottle 05/21/17 mcg/actuation (8 g)] Azithromycin 250 mg PO DAILY #6 tab 09/26/17 Benzonatate [Tessalon Perles] 200 mg PO TID PRN #15 sgl 09/26/17 Cetirizine HCl [Zyrtec] 10 mg PO DAILY #30 capsule 11/28/17 Meloxicam [Mobic] 15 mg PO DAILY #20 tab 11/28/17 Permethrin [Elimite] 60 gm TP ONCE #1 cream..g. 11/28/17 - Allergies Allergies/Adverse Reactions: Allergies Allergy/AdvReac Type Severity Reaction Status Date / Time tramadol Allergy RASH Verified 11/28/17 02:09 Review of Systems ROS Statement: Except As Marked, All Systems Reviewed And Found Negative Constitutional: Negative for: Fever Respiratory: Negative for: Cough, Shortness of Breath Skin: Positive for: Rash Physical Exam - Reviewed Nursing Documentation Reviewed: Yes Vital Signs Reviewed: Yes - Physical Exam Comments: GENERAL APPEARANCE: Patient is awake, alert, oriented x 3, in no acute distress SKIN: (+) diffuse erythematous rash with excoriations to torso HENT: (-) conjunctival injection, (-) chemosis. Oropharynx: clear (-) tongue or lip swelling, (-) tonsillar exudates, (-) erythema. Airway: patent (-) stridor, (-) hoarseness. Mucous membranes moist. Nares: Patent (-) rhinorrhea. NECK: (-) lymphadenopathy, (-) tenderness. CARDIOVASCULAR: Normal rate and rhythm. (-) murmur, (-) gallop. CHEST: (-) rales, (-) wheezing, (-) dyspnea, (-) stridor. Breath sounds equal bilaterally. ABDOMEN: Soft. (-) tenderness, (-) distention, (-) HSM. NEURO: Mental status: Patient is alert, oriented, and with normal strength and tone. - ECG O2 Sat by Pulse Oximetry: 97 (RA) Pulse Ox Interpretation: Normal Medical Decision Making Medical Decision Making: Impression : rash, consider scabies Plan : - D/c - Rx for elimite Patient instructed to follow-up with pmd / referral provided / the clinic in 1- 2 days without fail. Advised to take medication as prescribed. Return to the emergency room at any time for any new or worsening symptoms. Patient states she fully agrees with and understands discharge instructions. States that she agrees with the plan and disposition. Verbalized and repeated discharge instructions and plan. I have given the patient opportunity to ask any additional questions. Scribe Attestation: Documented by Naeem Renner, acting as a scribe for Mckayla Christian PA-C. Provider Scribe Attestation: All medical record entries made by the Scribe were at my direction and personally dictated by me. I have reviewed the chart and agree that the record accurately reflects my personal performance of the history, physical exam, medical decision making, and the department course for this patient. I have also personally directed, reviewed, and agree with the discharge instructions and disposition. Disposition - Clinical Impression Clinical Impression: Scabies, Rash - Patient ED Disposition Is Patient to be Admitted: No Counseled Patient/Family Regarding: Diagnosis, Need For Followup, Rx Given - Disposition Referrals: Carlos Kat MD [Staff Provider] - Jose Martínez MD [Medical Doctor] - [facility] [Outside] Disposition: Routine/Home Disposition Time: 02:30 Condition: STABLE Additional Instructions: Thank you for letting us take care of you today. You were treated for rash, consider scabies. The emergency medical care you received today was directed at your acute symptoms. If you were prescribed any medication, please fill it and take as directed. It may take several days for your symptoms to resolve. Return to the Emergency Department if your symptoms worsen, do not improve, or if you have any other problems. Please contact your doctor in 2 days for re-evaluation and follow up / or call one of the physicians/clinics you have been referred to that are listed on the Patient Visit Information form that is included in your discharge packet. Bring any paperwork you were given at discharge with you along with any medications you are taking to your follow up visit. Our treatment cannot replace ongoing medical care by a primary care provider (PCP) outside of the emergency department. Thank you for allowing the [facility] team to be part of your care today. Prescriptions: Cetirizine HCl [Zyrtec] 10 mg PO DAILY #30 capsule Meloxicam [Mobic] 15 mg PO DAILY #20 tab Permethrin [Elimite] 60 gm TP ONCE #1 cream..g. Instructions: Skin Rash (DC), Scabies (DC) Forms: [employer] (Burkinan) - PA / BULL BUCKER / Resident Statement MD/DO has reviewed & agrees with the documentation as recorded.
== END 2017-11-28 02:52 | disposition home or self-care (01) ==
LOC: H.ER 02:07
DX: B86 Scabies (principal)

== ENCOUNTER 2017-12-24 15:32 | Inpatient (IN) | payer MEDICAID ==
[2017-12-24 15:32] VITALS: BMI 19.9
[2017-12-24 15:40] VITALS: O2SAT 100
--- NOTE | 2017-12-24 16:00 | ED PDOC ---
HPI: Psych/Substance Abuse Time Seen by Provider: 12/24/17 15:48 Chief Complaint (Nursing): Psychiatric Evaluation Chief Complaint (Provider): Psychiatric Evaluation History Per: Patient History/Exam Limitations: no limitations Onset/Duration Of Symptoms: Hrs Current Symptoms Are (Timing): Still Present Associated Symptoms: Suicidal Thoughts Additional Complaint(s): Stephany Garcia is a 47 year old female with a past medical history of depression , asthma, and migraines, who was brought to the ED by EMS for psychiatric evaluation s/p expressing suicidal thoughts prior to arrival. Patient states that she does not have a place to live and her boyfriend of three years left. She admits to self-harm attempts in the past, and states she tried to take pills and was admitted in this hospital. Patient offers no other medical complaints at this time and is not very cooperative. PMD: none provided Past Medical History Reviewed: Historical Data, Nursing Documentation, Vital Signs Vital Signs: Last Vital Signs Temp 98.7 F 12/24/17 15:37 Pulse 81 12/24/17 15:37 Resp 16 12/24/17 15:37 BP 112/82 12/24/17 15:37 Pulse Ox 100 12/24/17 15:37 - Medical History PMH: Asthma, Back Problems, Depression, Gall Bladder Disease (gallstone), Migraine Denies: Diabetes, Hepatitis, HIV, HTN, Chronic Kidney Disease, Seizures, Sexually Transmitted Disease - Surgical History Surgical History: No Surg Hx - Family History Family History: States: Unknown Family Hx - Social History Current smoker - smoking cessation education provided: No Alcohol: Other (states used in past) Drugs: Cocaine (used to years ago) - Immunization History Hx Tetanus Toxoid Vaccination: No Hx Influenza Vaccination: No Hx Pneumococcal Vaccination: No - Home Medications Home Medications: Ambulatory Orders Medication Instructions Recorded Albuterol HFA [Ventolin HFA 90 2 puff IH Q4H PRN #1 bottle 05/21/17 mcg/actuation (8 g)] Azithromycin 250 mg PO DAILY #6 tab 09/26/17 Benzonatate [Tessalon Perles] 200 mg PO TID PRN #15 sgl 09/26/17 Cetirizine HCl [Zyrtec] 10 mg PO DAILY #30 capsule 11/28/17 Meloxicam [Mobic] 15 mg PO DAILY #20 tab 11/28/17 Permethrin [Elimite] 60 gm TP ONCE #1 cream..g. 11/28/17 - Allergies Allergies/Adverse Reactions: Allergies Allergy/AdvReac Type Severity Reaction Status Date / Time tramadol Allergy RASH Verified 11/28/17 02:09 Review of Systems ROS Statement: Except As Marked, All Systems Reviewed And Found Negative Psych: Positive for: Suicidal ideation Physical Exam - Reviewed Nursing Documentation Reviewed: Yes Vital Signs Reviewed: Yes - Physical Exam Appears: Positive for: Non-toxic, No Acute Distress Head Exam: Positive for: ATRAUMATIC, NORMAL INSPECTION, NORMOCEPHALIC Skin: Positive for: Normal Color, Warm, DRY Eye Exam: Positive for: EOMI, Normal appearance, PERRL ENT: Positive for: Normal ENT Inspection Neck: Positive for: Normal, Painless ROM Cardiovascular/Chest: Positive for: Regular Rate, Rhythm Respiratory: Positive for: Normal Breath Sounds. Negative for: Respiratory Distress Gastrointestinal/Abdominal: Positive for: Normal Exam Extremity: Positive for: Normal ROM. Negative for: Deformity, Swelling Neurologic/Psych: Positive for: Alert, Oriented, Other (poor eye contact, not cooperative ). Negative for: Motor/Sensory Deficits - Laboratory Results Result Diagrams: 12/24/17 18:01 12/24/17 18:01 - ECG O2 Sat by Pulse Oximetry: 100 (RA) Pulse Ox Interpretation: Normal Medical Decision Making Medical Decision Making: Time: 15:46 Plan: --Alcohol serum --CMP --Drug Screen --ED Urine --CBC --1:1 Observation --Urinalysis 16:08 Case discussed with aircraft layout worker. Patient will be admitted under Dr. Griffiths for depression. Scribe Attestation: Documented by Pratibha Martinez, acting as a scribe for Lorraine Bernal PA-C. Provider Scribe Attestation: All medical record entries made by the Scribe were at my direction and personally dictated by me. I have reviewed the chart and agree that the record accurately reflects my personal performance of the history, physical exam, medical decision making, and the department course for this patient. I have also personally directed, reviewed, and agree with the discharge instructions and disposition. Disposition - Clinical Impression Clinical Impression: Depression - Patient ED Disposition Is Patient to be Admitted: Yes - Disposition Disposition Time: 18:00 Condition: FAIR - Pt Status Changed To: Hospital Disposition Of: Inpatient - Admit Certification Admit to Inpatient:: After my assessment, the patient will require hospitalization for at least two midnights. This is because of the severity of symptoms shown, intensity of services needed, and/or the medical risk in this patient being treated as an outpatient.
[2017-12-24 18:06] LABS: BASO % 0.9 % (0.0-2.0); EOS % 0.4 % (0.0-4.0); LYMPH # 1.3 K/uL (1.0-4.3); LYMPH % 23.3 % (20.0-40.0); MEAN CELL VOLUME 94.5 fl (81.0-99.0); MEAN CORPUSCULAR HEMOGLOBIN 31.5 pg (27.0-31.0); MEAN CORPUSCULAR HGB CONC 33.3 g/dL (33.0-37.0); MEAN PLATELET VOLUME 8.4 fl (7.2-11.7); MONO # 0.4 K/uL (0.0-0.8); MONO % 7.4 % (0.0-10.0); NEUT # 3.7 K/uL (1.8-7.0); RBC 4.12 Mil/uL (3.80-5.20); RED CELL DISTRIBUTION WIDTH 13.9 % (11.5-14.5); WHITE BLOOD COUNT 5.4 K/uL (4.8-10.8)
[2017-12-24 18:17] LABS: ALB/GLOB RATIO 1.2 (1.0-2.1); ALBUMIN 3.9 g/dL (3.5-5.0); ALT/SGPT 14 U/L (9-52); AST/SGOT 21 U/L (14-36); BLOOD UREA NITROGEN 17 mg/dl (7-17); CALCIUM 9.4 mg/dL (8.4-10.2); GFR AFRICAN-AMERICAN > 60; GFR NON-AFRICAN AMERICAN > 60
[2017-12-24 18:33] LABS: SQUAMOUS EPITHIAL < 1 /hpf (0-5); URINE BACTERIA RARE (<OCC); URINE BILIRUBIN NEGATIVE (NEGATIVE); URINE BLOOD NEGATIVE (NEGATIVE); URINE CLARITY CLEAR (Clear); URINE COLOR YELLOW (YELLOW); URINE GLUCOSE (UA) NEG (Normal); URINE LEUKOCYTE ESTERASE NEG Leu/uL (Negative); URINE PROTEIN NEGATIVE (NEGATIVE); URINE UROBILINOGEN 0.2-1.0 mg/dL (0.2-1.0)
[2017-12-24 18:47] LABS: BARBITURATES, UR NEGATIVE (NEGATIVE); BENZODIAZEPINES, UR NEGATIVE (NEGATIVE); OPIATES, UR NEGATIVE (NEGATIVE); PHENCYCLIDINE, UR NEGATIVE (NEGATIVE)
[2017-12-24] MEDS ORDERED: Alum-Mag Hydrox-Simethicone Susp (30 mL) PO PRN (21:18)
[2017-12-24] MEDS ORDERED: Magnesium Hydroxide Susp 30 ml UD PO PRN (21:18)
[2017-12-24] MEDS ORDERED: DiphenhydrAMINE 50 mg/ml Inj IM PRN (21:18)
--- NOTE | 2017-12-24 22:02 | PCM.BM ---
<Kim Light - Last Filed: 12/24/17 21:59> Treatment Plan Problems - Problems identified on initial assessmt Suicidal Ideation Date Initiated: 12/24/17 Time Initiated: 22:00 Assessment reference: NA Status: Active Hopelessness/Helplessness Date Initiated: 12/24/17 Time Initiated: 22:01 Assessment reference: NA Status: Active Altered Sleep Patterns Date Initiated: 12/24/17 Time Initiated: 22:01 Assessment reference: NA Status: Active Ineffective Coping Date Initiated: 12/24/17 Time Initiated: 22:02 Assessment reference: NA Status: Active Treatment assets and liabiliti Patient Assests: ADL independent, negotiates basic needs Patient Liabilities: poor support system, relationship conflicts, medical problems - Milieu Protocol Maintain good personal hygiene: daily Encourage regular showers, daily Remind patient to perform daily oral care, every shift Assist patient to perform ADL's Maintain personal safety: every shift Educate patient to report safety concerns to staff, every shift Monitor environment for contraband/sharps Medication safety: Monitor for expected outcome, potential side effects: every shift, Assess barriers to learning: every shift, Assess readiness for medication education: every shift <Annie Bar - Last Filed: 12/28/17 15:28> Treatment assets and liabiliti Patient Assests: adapts well, resourceful, ADL independent, negotiates basic needs, cognitively intact Patient Liabilities: poor support system, relationship conflicts, medical problems, other (limited family/social supports ; recent homelessness) Family Contact Family involvement: Patient does not wish Family/SO involvement Family contact: Family has been contacted by patient, Patient declines to allow family contact at present, Other Family contact comment: t. requested that proposal writer contact ex-boyfriends brother , stating I cant call my boyfriend. Call his brother to convince him to come home. Curing Press Operator explained that it would be inappropriate for proposal writer to contact friends/family for that purpose but would be willing to do so to discuss pts tx and progress. Pt declined, stating No. I just want him to come back. - Goals for Treatment Patient goals for treatment: Patient to continue stabilization on 3NP through medication management and group/supportive therapy to improve sxs of depression and eliminate SI. Patient to be encouraged to attend groups regularly to promote self-awareness, maintained sobriety, and improve insight, compliance, coping skills and self-esteem. Patient to be provided with referral for appropriate level of aftercare to reduce risk of future hospitalizations and ensure safety in the community. Discharge/Continuing Care - Education Needs Education Needs: Patient Medication, Patient Diagnosis/Disease Process, Patient Coping Skills, Patient Community resources, Patient Aftercare Safety Plan - Discharge Discharge Criteria: Tolerates medication w/o severe side effects, Free of Suicidal thoughts, Free of agitation, Normal sleep pattern, Ability to care for self, Reduction of target symptoms Discharge to:: [facility], Other (OPS) - Treatment Team Participation Patient/Family/SO Statement: 12/28/17 15:34 Patient invited to tx team this morning and was able to engage in discussion regarding progress on 3NP, tx goals and aftercare. Pt. reports improvement in sxs of depression but continues to present as depressed as evidence by flat affect, poor energy and motivation. Pt. less irritable and slightly more receptive to feedback than upon admission. Pt. expressed feeling as though rapid cycling/lability has worsened with age. Psychoeducation regarding nature of dx and benefits of a mood stabilizer provided. Curing Press Operator emphasized importance of compliance with aftercare and medication management to reduce risk of future hospitalizations. As per pt, pt has hx with [facility] but has had case closed twice secondary to noncompliance. pt. provided proposal writer with consent to contact [facility] and inquire whether pt can be referred back to program. Pt. agreeable to referral to [facility] with OPS. Pt. denied S/HI/AH/VH. Discussed with Family/SO: No Was Patient/Family/SO present at Treatment Team Meeting: Yes <Roger Bear - Last Filed: 12/30/17 12:41> - Diagnosis (1) Depression Status: Acute Interventions: psychotherapy, pharmacotherapy 12/30/17 12:40
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
[2017-12-25 09:13] LABS: T4 7.65 ug/dl (5.5-11.0)
--- NOTE | 2017-12-26 16:55 | PCM.PYCHPN ---
Psychiatric Progress Note - Psychiatric Progress Note Patient seen today, length of contact: pt evaluated discussed with team chart reviewed Patient Chief Complaint: I do not see any hope for me Problems Identified/Issues Discussed: pt evaluated in day room, presenting with depressed mood and affect, reported feeling hopeless and helpless about her current living situation, pt has been homeless for past three months after breaking up with her , since then has been unable to function at her job, pt reported poor sleep with early insomnia, discussed increasing trazodone, continues to have poor appetite reported passive suicidal ideation stating she feels her life is worthless without active intent, discussed staring abilify, encouraged pt to attend groups , and participate in treatment pt denied command hallucinations, no reported side effects of medications DSM 5 Symptoms Update: major depression recurrent severe Medication Change: Yes Medical Record Reviewed: Yes Mental Status Examination - Cognitive Function Orientation: Person, Place, Situation, Time Memory: Intact Attention: WNL Concentration: WNL Association: WNL Fund of Knowledge: Poor Decription of patient's judgement and insights: partial insight poor judgment - Mood Mood: Depressed, Anxious - Affect Affect: Constricted, Depressed - Speech Speech: Soft - Formal Thought Process Formal Thought Process: Circumstantial Psychotic Thoughts and Behaviors: pt denied perceptual disturbances, non elicited - Suicidal Ideation Suicidal Ideation: No - Homicidal Ideation Homicidal Ideation: No Goal/Treatment Plan - Goal/Treatment Plan Need for Continued Stay: Severe depression anxiety, Discharge may exacerbated symptoms Progress Toward Problem(s) and Goals/Treatment Plan: continue with zoloft increase gradually start abilify 5mg for augmentation and for suicidal ideation [facility]
--- NOTE | 2017-12-26 17:53 | CP.PCM.CON ---
History of Present Illness - History of Present Illness History of Present Illness: 47 yo female with history of asthma and depression admitted to psyche unit because of suicidal ideation and worsening depression. Review of Systems - Review of Systems All systems: reviewed and no additional remarkable complaints except (aside from those mentioned above, 12 point system review were negative by me) Past Patient History - Infectious Disease Hx of Infectious Diseases: None - Tetanus Immunizations Tetanus Immunization: Unknown - Past Social History Smoking Status: Never Smoked Chewing Tobacco Use: No Cigar Use: No Alcohol: None (states used in past) Drugs: Cocaine (used to years ago) - CARDIAC Hx Cardiac Disorders: No Hx Hypertension: No - PULMONARY Hx Asthma: Yes - NEUROLOGICAL Hx Migraine: No Hx Seizures: No - HEENT Hx HEENT Problems: No - RENAL Hx Chronic Kidney Disease: No - ENDOCRINE/METABOLIC Hx Endocrine Disorders: No - HEMATOLOGICAL/ONCOLOGICAL Hx Blood Disorders: No Hx Human Immunodeficiency Virus (HIV): No - INTEGUMENTARY Hx Dermatological Problems: No - MUSCULOSKELETAL/RHEUMATOLOGICAL Hx Musculoskeletal Disorders: No Hx Falls: No - GASTROINTESTINAL Hx Gall Bladder Disease: Yes (gallstone) - GENITOURINARY/GYNECOLOGICAL Hx Genitourinary Disorders: No Hx Sexually Transmitted Disorders: No - PSYCHIATRIC Hx Anxiety: Yes Hx Depression: Yes Hx Substance Use: Yes - SURGICAL HISTORY Hx Surgeries: Yes Other/Comment: L eye surgery at age 3 - ANESTHESIA Hx Anesthesia: Yes (pt cannot remember) Hx Anesthesia Reactions: No Meds Allergies/Adverse Reactions: Allergies Allergy/AdvReac Type Severity Reaction Status Date / Time tramadol Allergy RASH Verified 11/28/17 02:09 - Medications Medications: Current Medications Acetaminophen (Tylenol 325mg Tab) 650 mg PO Q4 PRN PRN Reason: Pain, moderate (4-7) Al Hydrox/Mg Hydrox/Simethicone (Maalox Plus 30 Ml) 30 ml PO Q4 PRN PRN Reason: Dyspepsia Aripiprazole (Abilify) 5 mg PO HS SARAH Diphenhydramine HCl (Benadryl) 50 mg IM Q6 PRN PRN Reason: Extrapyramidal S/S Unable PO Diphenhydramine HCl (Benadryl) 50 mg PO HS PRN PRN Reason: Sleep Haloperidol (Haldol) 5 mg PO Q4 PRN PRN Reason: Agitation Haloperidol Lactate (Haldol) 5 mg IM Q4 PRN PRN Reason: Agitation, Unable to Take PO Lorazepam (Ativan) 1 mg PO Q8 PRN PRN Reason: for severe agitation Last Admin: 12/25/17 09:19 Dose: 1 mg Magnesium Hydroxide (Milk Of Magnesia) 30 ml PO HS PRN PRN Reason: Constipation Sertraline HCl (Zoloft) 50 mg PO DAILY SARAH Last Admin: 12/26/17 09:22 Dose: 50 mg Trazodone HCl (Desyrel) 50 mg PO HS SARAH Physical Exam - Constitutional Appears: No Acute Distress - Head Exam Head Exam: ATRAUMATIC - Eye Exam Eye Exam: absent: Scleral icterus - ENT Exam ENT Exam: Mucous Membranes Moist - Neck Exam Neck exam: Negative for: Meningismus - Respiratory Exam Respiratory Exam: absent: Rales, Rhonchi, Wheezes, Respiratory Distress - Cardiovascular Exam Cardiovascular Exam: REGULAR RHYTHM, +S1, +S2 - GI/Abdominal Exam GI & Abdominal Exam: Soft. absent: Tenderness - Rectal Exam Rectal Exam: Deferred - Extremities Exam Extremities exam: Negative for: pedal edema - Neurological Exam Neurological exam: Alert, Oriented x3 - Psychiatric Exam Psychiatric exam: Normal Affect - Skin Skin Exam: Dry, Intact Results - Vital Signs Recent Vital Signs: Last Vital Signs Temp 97.3 F L 12/26/17 17:00 Pulse 64 12/26/17 17:00 Resp 18 12/26/17 17:00 BP 126/78 12/26/17 17:00 Pulse Ox 100 12/24/17 19:49 - Labs Result Diagrams: 12/24/17 18:01 12/24/17 18:01 Assessment & Plan (1) Depression Status: Acute Comment: psyche is managing (2) Asthma Status: Inactive Comment: asymptomatic
[2017-12-27 13:22] LABS: HEMOGLOBIN 13.3 g/dL (12.0-16.0); MEAN CELL VOLUME 94.2 fl (81.0-99.0); MEAN CORPUSCULAR HEMOGLOBIN 31.1 pg (27.0-31.0); RBC 4.26 Mil/uL (3.80-5.20); RED CELL DISTRIBUTION WIDTH 13.8 % (11.5-14.5); WHITE BLOOD COUNT 6.8 K/uL (4.8-10.8)
[2017-12-27 13:44] LABS: BLOOD UREA NITROGEN 11 mg/dl (7-17); CALCIUM 8.8 mg/dL (8.4-10.2); GFR AFRICAN-AMERICAN > 60; GFR NON-AFRICAN AMERICAN > 60
--- NOTE | 2017-12-27 18:09 | PCM.PYCHPN ---
Psychiatric Progress Note - Psychiatric Progress Note Patient seen today, length of contact: pt evaluated discussed with team chart reviewed Patient Chief Complaint: I feel sick and tired Problems Identified/Issues Discussed: pt evaluated in day room, presenting with depressed mood and affect,pt has been having GIT symptoms including nausea vomiting and pain, referred for family practice consult continues to report depressed mood and affect reported feeling hopeless and helpless about her current living situation, with passive suicidal ideation without active plan on the unit encouraged pt to attend groups , and participate in treatment pt denied command hallucinations, no reported side effects of medications DSM 5 Symptoms Update: major depression recurrent severe without psychotic features Medication Change: No Medical Record Reviewed: Yes Mental Status Examination - Cognitive Function Orientation: Person, Place, Situation, Time Memory: Intact Attention: WNL Concentration: WNL Association: WNL Fund of Knowledge: Poor Decription of patient's judgement and insights: partial insight poor judgment - Mood Mood: Depressed, Anxious - Affect Affect: Constricted, Depressed - Speech Speech: Soft - Formal Thought Process Formal Thought Process: Circumstantial Psychotic Thoughts and Behaviors: pt denied perceptual disturbances, non elicited - Suicidal Ideation Suicidal Ideation: No - Homicidal Ideation Homicidal Ideation: No Goal/Treatment Plan - Goal/Treatment Plan Need for Continued Stay: Severe depression anxiety, Discharge may exacerbated symptoms Progress Toward Problem(s) and Goals/Treatment Plan: continue with zoloft i50mg daily abilify 5mg for augmentation and for suicidal ideation follow up with family practice consult [facility]
--- NOTE | 2017-12-28 16:07 | PCM.PYCHPN ---
Psychiatric Progress Note - Psychiatric Progress Note Patient seen today, length of contact: pt evaluated discussed with team chart reviewed Patient Chief Complaint: I need help with my living situation Problems Identified/Issues Discussed: pt evaluated with treatment team presenting with depressed mood and affect, continues to report feeling hopeless and helpless about her current living situation, with passive suicidal ideation without active plan on the unit encouraged pt to attend groups , and participate in treatment pt denied command hallucinations, no reported side effects of medications DSM 5 Symptoms Update: depression Medication Change: Yes (start abilify) Medical Record Reviewed: Yes Mental Status Examination - Cognitive Function Orientation: Person, Place, Situation, Time Memory: Intact Attention: WNL Concentration: WNL Association: WNL Fund of Knowledge: Poor Decription of patient's judgement and insights: partial insight poor judgment - Mood Mood: Depressed, Anxious - Affect Affect: Constricted, Depressed - Speech Speech: Soft - Formal Thought Process Formal Thought Process: Circumstantial Psychotic Thoughts and Behaviors: pt denied perceptual disturbances, non elicited - Suicidal Ideation Suicidal Ideation: No - Homicidal Ideation Homicidal Ideation: No Goal/Treatment Plan - Goal/Treatment Plan Need for Continued Stay: Severe depression anxiety, Discharge may exacerbated symptoms Progress Toward Problem(s) and Goals/Treatment Plan: continue with zoloft 50mg daily abilify 5mg for augmentation and for suicidal ideation follow up with family practice consult [facility]
--- NOTE | 2017-12-29 14:38 | PCM.PYCHPN ---
Psychiatric Progress Note - Psychiatric Progress Note Patient seen today, length of contact: pt evaluated discussed with team chart reviewed Patient Chief Complaint: I STILL GET THE MOOD SWINGS Problems Identified/Issues Discussed: pt evaluated , reported continues to have mood swings, with episodes of anger and irritability, pt reported feeling anxious about her current living situation discussed with pt increasing the dose of abilify for mood stabilization, pt continues to isolate herself, encouraged her to attend groups , advised about importance of compliance with follow up appointment on discharge pt denied command hallucinations, denied any current suicidal or homicidal ideation , no reported side effects of medications DSM 5 Symptoms Update: bipolar disorder depressed Medication Change: Yes (increase abilify) Medical Record Reviewed: Yes Mental Status Examination - Cognitive Function Orientation: Person, Place, Situation, Time Memory: Intact Attention: WNL Concentration: WNL Association: WNL Fund of Knowledge: Poor Decription of patient's judgement and insights: partial insight poor judgment - Mood Mood: Depressed, Anxious - Affect Affect: Constricted, Depressed - Speech Speech: Soft - Formal Thought Process Formal Thought Process: Circumstantial Psychotic Thoughts and Behaviors: pt denied perceptual disturbances, non elicited - Suicidal Ideation Suicidal Ideation: No - Homicidal Ideation Homicidal Ideation: No Goal/Treatment Plan - Goal/Treatment Plan Need for Continued Stay: Severe depression anxiety, Discharge may exacerbated symptoms Progress Toward Problem(s) and Goals/Treatment Plan: continue with zoloft 50mg daily abilify 10mg for mood stabilization [facility]
--- NOTE | 2017-12-30 12:37 | PCM.PYCHPN ---
Psychiatric Progress Note - Psychiatric Progress Note Patient seen today, length of contact: pt evaluated discussed with team chart reviewed Patient Chief Complaint: I feel better with abilify Problems Identified/Issues Discussed: pt evaluated , reported feeling calmer, less mood swings affect less depressed, more visible on the unit, attending groups, ,pt denied any current suicidal or homicidal ideation, denied side effects of medication DSM 5 Symptoms Update: bipolar disorder depressed Medication Change: No Medical Record Reviewed: Yes Mental Status Examination - Cognitive Function Orientation: Person, Place, Situation, Time Memory: Intact Attention: WNL Concentration: WNL Association: WNL Fund of Knowledge: Poor Decription of patient's judgement and insights: partial insight poor judgment - Mood Mood: Neutral - Affect Affect: Constricted, Depressed - Speech Speech: Soft - Formal Thought Process Formal Thought Process: Circumstantial Psychotic Thoughts and Behaviors: pt denied perceptual disturbances, non elicited - Suicidal Ideation Suicidal Ideation: No - Homicidal Ideation Homicidal Ideation: No Goal/Treatment Plan - Goal/Treatment Plan Need for Continued Stay: Severe depression anxiety, Discharge may exacerbated symptoms Progress Toward Problem(s) and Goals/Treatment Plan: continue with zoloft 50mg daily abilify 10mg for mood stabilization [facility] Estimated Date of D/C: 12/31/17
[2017-12-30 17:53] VITALS: RESP 18
[2017-12-31 09:19] VITALS: BP 113/69; PULSE 73; TEMP 97.9
--- NOTE | 2017-12-31 13:01 | PCM.PYCHDC ---
Mental Status Examination - Mental Status Examination Orientation: Person, Place, Situation, Time Memory: Intact Mood: Neutral Affect: Broad Speech: Appropriate Attention: WNL Concentration: WNL Association: WNL Fund of Knowledge: WNL Formal Thought Process: No Impairment Description of patient's judgement and insight: reflects on stress of not follow up treatment in past, recent break up with boy friend, boyfriend's reported perception that pt was not seeking care, now pt reportedly admits and recognizes needs treatment and is willing to continue treatment. plans on continuing treatment upon discharge. denies ill will towards slef or others. has been adherent with treatment. denies complaints of side effects with current medications. t Psychotic Thoughts and Behaviors: denies Suicidal Ideation: No Current Homicidal Ideation?: No Discharge Summary - Discharge Note Reason for Hospitalization: presented to hospital suicidal thoughts without plan and depressive symptoms. reportedly was in context of break up with boyfriend prior to admission. Psychiatric History (includes Medical, Family, Personal Hx): Pt has had psych adm in the past at [facility] (05/2017) [facility]07/2017 Laboratory Data: per chart Consultations:: List each consultation separately and include: 1. Reason for request. 2. Findings. 3. Follow-up Consultations: pt seen by hospitlist Summary of Hospital Course include:: 1. Description of specific treatment plan utilized for patients during their course of treatmen. 2. Summarize the time- course for resolution of acute symptoms and/or regressed behaviors. 3. Describe issues identified and worked on during hospitalization. 4. Describe medication utilized. 5. Describe medical problems identified and treated. 6. Reassessment of suicide risk Summary of Hospital Course: admitted through er, voluntary admission, milieu therapy, seen by hospitalist, medications titrated, controll of symptoms, no complaints of side effects, verbalizing desire to continue treatment upon discharge, denying ill will towards others or self - Final Diagnosis (DSM 5) Condition upon Discharge: FAIR Disposition: HOME/ ROUTINE Follow-up Treatment Plan: as per treatment team Prescriptions/Medication Reconciliation: ARIPiprazole [Abilify] 10 mg PO HS 30 Days #30 tab Sertraline [Zoloft] 50 mg PO DAILY 30 Days #30 tab - Smoking Cessation Smoking Cessation Medication prescribed: No Reason for not providing: deferred - Antipsychotic Medications Pt discharged on 2 or more routine antipsychotic medications: No
== END 2017-12-31 11:46 | disposition home or self-care (01) | DRG 430 ==
LOC: H.ER 15:32 → H.ERHOLD 18:06 → H.PSYCH 21:35
PROVIDERS: ADMIT Psychiatry & Neurology Psychiatry; ATTEND Psychiatry & Neurology Psychiatry
PROC: GZHZZZZ Group Psychotherapy (ICD-10-PCS; principal; 2017-12-24)
PROC: GZ58ZZZ Individual Psychotherapy, Cognitive-Behavioral (ICD-10-PCS; 2017-12-24)
DX: F33.2 Major depressive disorder, recurrent severe without psychotic features (principal); R45.851 Suicidal ideations; J45.909 Unspecified asthma, uncomplicated; F41.9 Anxiety disorder, unspecified; G43.909 Migraine, unspecified, not intractable, without status migrainosus; Z62.810 Personal history of physical and sexual abuse in childhood; Z79.1 Long term (current) use of non-steroidal anti-inflammatories (NSAID); Z59.0 Homelessness

== ENCOUNTER 2018-05-14 09:01 | Emergency (ER) | payer MEDICAID ==
--- NOTE | 2018-05-14 09:47 | ED PDOC ---
HPI: Psych/Substance Abuse Time Seen by Provider: 05/14/18 09:38 History Per: Patient Onset/Duration Of Symptoms: Persistent Current Symptoms Are (Timing): Still Present Suicide/Self Injury Attempted (Context): None Modifying Factor(s): None Severity: Moderate Associated Symptoms: Depression Additional Complaint(s): Depressed, off meds. Denies SI/HI. Also c/o chronic upper back pain. Denies injury or weakness. denies cough. Past Medical History - Medical History PMH: Anxiety, Asthma, Back Problems, Depression, Gall Bladder Disease (gallstone), Migraine Denies: Diabetes, Hepatitis, HIV, HTN, Chronic Kidney Disease, Seizures, Sexually Transmitted Disease - Family History Family History: States: Unknown Family Hx - Immunization History Hx Tetanus Toxoid Vaccination: No Hx Influenza Vaccination: No Hx Pneumococcal Vaccination: No - Home Medications Home Medications: Ambulatory Orders Medication Instructions Recorded Albuterol HFA [Ventolin HFA 90 2 puff IH Q4H PRN #1 bottle 05/21/17 mcg/actuation (8 g)] Azithromycin 250 mg PO DAILY #6 tab 09/26/17 Benzonatate [Tessalon Perles] 200 mg PO TID PRN #15 sgl 09/26/17 Cetirizine HCl [Zyrtec] 10 mg PO DAILY #30 capsule 11/28/17 Meloxicam [Mobic] 15 mg PO DAILY #20 tab 11/28/17 Permethrin [Elimite] 60 gm TP ONCE #1 cream..g. 11/28/17 ARIPiprazole [Abilify] 10 mg PO HS 30 Days #30 tab 12/30/17 Sertraline [Zoloft] 50 mg PO DAILY 30 Days #30 tab 12/30/17 Amoxicillin [Amoxil 500 mg Cap] 500 mg PO TID #20 cap 04/09/18 Metronidazole [Flagyl] 500 mg PO BID #14 tab 04/10/18 Naproxen [Naprosyn] 500 mg PO Q12H #20 tab 05/14/18 - Allergies Allergies/Adverse Reactions: Allergies Allergy/AdvReac Type Severity Reaction Status Date / Time tramadol Allergy RASH Verified 04/15/18 19:20 Review of Systems ROS Statement: Except As Marked, All Systems Reviewed And Found Negative Musculoskeletal: Positive for: Back Pain Psych: Positive for: Depression. Negative for: Suicidal ideation Physical Exam - Reviewed Nursing Documentation Reviewed: Yes Vital Signs Reviewed: Yes - Physical Exam Appears: Positive for: Non-toxic, No Acute Distress Head Exam: Positive for: ATRAUMATIC, NORMAL INSPECTION, NORMOCEPHALIC Skin: Positive for: Normal Color, Warm, DRY Eye Exam: Positive for: EOMI, Normal appearance, PERRL ENT: Positive for: Normal ENT Inspection Neck: Positive for: Normal, Painless ROM Cardiovascular/Chest: Positive for: Regular Rate, Rhythm Respiratory: Positive for: CNT, Normal Breath Sounds Gastrointestinal/Abdominal: Positive for: Normal Exam, Soft Back: Positive for: Muscle Spasm. Negative for: Vertebral Tenderness Extremity: Positive for: Normal ROM Neurologic/Psych: Positive for: Alert, Oriented Disposition - Clinical Impression Clinical Impression: Depression, Back pain - Patient ED Disposition Is Patient to be Admitted: No Counseled Patient/Family Regarding: Diagnosis, Need For Followup, Rx Given - Disposition Referrals: [facility] [Outside] Disposition: Routine/Home Disposition Time: 10:53 Condition: FAIR Prescriptions: Naproxen [Naprosyn] 500 mg PO Q12H #20 tab Instructions: Depression, Upper Back Pain (DC)
[2018-05-14 12:18] VITALS: BP 107/40; PULSE 64; RESP 16; TEMP 97.6; O2SAT 100
== END 2018-05-14 11:45 | disposition home or self-care (01) ==
LOC: H.ER 09:01
DX: F32.9 Major depressive disorder, single episode, unspecified (principal); M54.9 Dorsalgia, unspecified

== ENCOUNTER 2018-06-09 00:42 | Emergency (ER) | payer MEDICAID ==
[2018-06-09 00:55] VITALS: RESP 16
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
[2018-06-09 05:04] VITALS: BP 132/70; PULSE 94; TEMP 97.7; O2SAT 99
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
== END 2018-06-09 04:35 | disposition home or self-care (01) ==
LOC: H.ER 00:42
DX: S09.90XA Unspecified injury of head, initial encounter (principal); S00.83XA Contusion of other part of head, initial encounter; Y04.0XXA Assault by unarmed brawl or fight, initial encounter; Y92.89 Other specified places as the place of occurrence of the external cause; J32.9 Chronic sinusitis, unspecified

== ENCOUNTER 2018-10-11 13:32 | Emergency (ER) | payer MEDICAID ==
--- NOTE | 2018-10-11 15:35 | ED PDOC ---
Lower Extremity Pain/Injury Time Seen by Provider: 10/11/18 14:29 Chief Complaint (Nursing): Lower Extremity Problem/Injury Chief Complaint (Provider): Lower Extremity Problem/Injury History Per: Patient History/Exam Limitations: no limitations Onset/Duration Of Symptoms: Days Current Symptoms Are (Timing): Still Present Additional Complaint(s): Patient is a 48 y/o female with a PMHx of asthma who presents to the ED for evaluation of blisters on the bottom of both her feet for the past few days. Patient states she walks a lot and her shoes are starting to break down. Patient also reports a cough exacerbated by her asthma which she lost her inhaler and is asking for Rx. pt is a smoker. Of note, patient's LMP was in August. Pt denies fever, chills, numbness or tingling, chest pain, SOB, changes in skin color, leg swelling or purulent drainage. PCP: None Provided Past Medical History Reviewed: Historical Data, Nursing Documentation, Vital Signs Vital Signs: Last Vital Signs Temp 97.9 F 10/11/18 14:08 Pulse 86 10/11/18 14:08 Resp 16 10/11/18 14:08 BP 110/75 10/11/18 14:08 Pulse Ox 100 10/11/18 14:08 - Medical History PMH: Anxiety, Asthma, Back Problems, Depression, Gall Bladder Disease (gall stone), Migraine, Seizures Denies: Diabetes, Hepatitis, HIV, HTN, Chronic Kidney Disease, Sexually Transmitted Disease - Surgical History Surgical History: No Surg Hx - Family History Family History: States: Unknown Family Hx - Social History Current smoker - smoking cessation education provided: Yes Alcohol: < 2 Drinks/Day Drugs: Cocaine - Immunization History Hx Tetanus Toxoid Vaccination: No Hx Influenza Vaccination: No Hx Pneumococcal Vaccination: No - Home Medications Home Medications: Ambulatory Orders Medication Instructions Recorded Albuterol HFA [Ventolin HFA 90 2 puff IH Q4H PRN #1 bottle 05/21/17 mcg/actuation (8 g)] Azithromycin 250 mg PO DAILY #6 tab 09/26/17 Benzonatate [Tessalon Perles] 200 mg PO TID PRN #15 sgl 09/26/17 Cetirizine HCl [Zyrtec] 10 mg PO DAILY #30 capsule 11/28/17 Meloxicam [Mobic] 15 mg PO DAILY #20 tab 11/28/17 Permethrin [Elimite] 60 gm TP ONCE #1 cream..g. 11/28/17 ARIPiprazole [Abilify] 10 mg PO HS 30 Days #30 tab 12/30/17 Sertraline [Zoloft] 50 mg PO DAILY 30 Days #30 tab 12/30/17 Amoxicillin [Amoxil 500 mg Cap] 500 mg PO TID #20 cap 04/09/18 Metronidazole [Flagyl] 500 mg PO BID #14 tab 04/10/18 Naproxen [Naprosyn] 500 mg PO Q12H #20 tab 05/14/18 Amoxicillin/Clavulanate [Augmentin 1 tab PO BID #20 tab 06/09/18 500 MG-125 MG] Amoxicillin/Clavulanate [Augmentin 1 tab PO BID #14 tab 08/23/18 875 MG-125 MG] Ibuprofen [Motrin] 1 tab PO TID PRN #30 tab 08/23/18 predniSONE [Prednisone] 20 mg PO BID #10 tab 08/23/18 - Allergies Allergies/Adverse Reactions: Allergies Allergy/AdvReac Type Severity Reaction Status Date / Time tramadol Allergy RASH Verified 08/23/18 21:13 Review of Systems ROS Statement: Except As Marked, All Systems Reviewed And Found Negative Respiratory: Positive for: Cough Musculoskeletal: Positive for: Foot Pain (bilaterally due to blisters beneath feet) Physical Exam - Reviewed Nursing Documentation Reviewed: Yes Vital Signs Reviewed: Yes - Physical Exam Comments: GENERAL APPEARANCE: Patient is thin, awake, alert, oriented x 3, in no acute distress. SKIN: Warm, dry; (-) cyanosis. CHEST AND RESPIRATORY: (-) chest wall tenderness. Lungs: (-) rales, (-) rhonchi, (-) wheezes; breath sounds equal bilaterally. HEART AND CARDIOVASCULAR: regular rate and rhythm. (-) irregularity; (-) murmur, (-) gallop. EXTREMITY: Blisters on distal plantar aspect of both feet, blister on left>right; cap refill less than 2 seconds, dp pulses 2+, (+) mild tenderness to sole, (-) signs for infection, (-) leg swelling, (-) calf tenderness NEURO AND PSYCH: Mental status as above. - ECG O2 Sat by Pulse Oximetry: 100 (RA) Pulse Ox Interpretation: Normal Medical Decision Making Medical Decision Making: Time: 1435 Impression: Blistering on Feet Bilaterally and Cough Plan: Urine Motrin 600 mg PO Podiatry clinic referral Dressing applied to feet Discussed results, diagnosis, treatment, return precautions and f/u with pt who is understanding, in agreement and stable for dc Scribe Attestation: Documented by Beto Noguera, acting as a scribe for Severino Lopez PA-C Provider Scribe Attestation: All medical record entries made by the Scribe were at my direction and personally dictated by me. I have reviewed the chart and agree that the record accurately reflects my personal performance of the history, physical exam, medical decision making, and the department course for this patient. I have also personally directed, reviewed, and agree with the discharge instructions and disposition. Disposition - Clinical Impression Clinical Impression: Blister of foot - Patient ED Disposition Is Patient to be Admitted: No Counseled Patient/Family Regarding: Studies Performed, Diagnosis, Need For Followup - Disposition Referrals: Podiatry Clinic [Outside] Disposition: Routine/Home Disposition Time: 15:36 Condition: IMPROVED Additional Instructions: Follow up with podiatry clinic as listed. Keep feet clean and dry. Thank you for letting us take care of you today. You were treated for blisters of feet. The emergency medical care you received today was directed at your acute symptoms. If you were prescribed any medication, please fill it and take as directed. It may take several days for your symptoms to resolve. Return to the Emergency Department if your symptoms worsen, do not improve, or if you have any other problems. Please contact your doctor in 2 days for re-evaluation and follow up / or call one of the physicians/clinics you have been referred to that are listed on the Patient Visit Information form that is included in your discharge packet. Bring any paperwork you were given at discharge with you along with any medications you are taking to your follow up visit. Our treatment cannot replace ongoing me dical care by a primary care provider (PCP) outside of the emergency department. Instructions: Blisters Print Language: BAHAMIAN - POA Present On Arrival: None
[2018-10-11 16:02] VITALS: BP 120/68; PULSE 80; RESP 17; TEMP 98
[2018-10-11 20:20] VITALS: O2SAT 100
== END 2018-10-11 16:00 | disposition home or self-care (01) ==
LOC: H.ER 13:32
DX: S90.821A Blister (nonthermal), right foot, initial encounter (principal); S90.822A Blister (nonthermal), left foot, initial encounter; X58.XXXA Exposure to other specified factors, initial encounter; Y92.89 Other specified places as the place of occurrence of the external cause; Z88.8 Allergy status to other drugs, medicaments and biological substances